=== PATIENT | male | born 1955 ===

== ENCOUNTER 2021-03-31 06:38 | Day surgery (SDC) | payer OTHER ==
[~2021-03-31] VITALS: Ht 180.3 cm; Wt 72.6 kg
[~2021-03-31 06:38] MED LIST: LEVOTHYROXIN100 MCG PO; LISINOPRIL20 MG PO; LORATADINE10 M1 PO; PRAVASTATIN SOD20 MG PO
[2021-03-31 08:58] VITALS: BP 131/76
== END 2021-03-31 09:05 | DRG 951 ==
LOC: ENDO 06:38 → ORM 08:00 → ENDO 09:05
PROVIDERS: ATTEND Surgery
PROC: 0DJD8ZZ Inspection of Lower Intestinal Tract, Via Natural or Artificial Opening Endoscopic (ICD-10-PCS; principal; 2021-03-31)
DX: Z12.11 Encounter for screening for malignant neoplasm of colon (principal); K57.30 Diverticulosis of large intestine without perforation or abscess without bleeding; K64.9 Unspecified hemorrhoids; I10 Essential (primary) hypertension; Z86.010 Personal history of colon polyps; Z80.0 Family history of malignant neoplasm of digestive organs